=== PATIENT | male | born 1960 | race African-American/Black ===

== ENCOUNTER 2021-01-13 16:33 | Inpatient (IN) | payer OTHER ==
[~2021-01-13] VITALS: Ht 172.7 cm; Wt 100.7 kg
[2021-01-13] MEDS ORDERED: LACTATED RINGERS 1,000 ML IV SCH ×2 (17:00)
[2021-01-13 17:28] LABS: BASOPHILS % 0.6 % (0.0-2.0); EOSINOPHILS % 0.3 % (0.0-5.0); HEMATOCRIT. 21.3 % (42.0-52.0); LYMPHOCYTES % 17.6 % (20.0-50.0); MEAN CORPUSCULAR HEMOGLOBIN 28.7 pg (28.0-32.0); MONOCYTES % 5.9 % (2.0-8.0); NEUTROPHILS % 75.6 % (40.0-76.0); PLATELET 212 x1000/uL (130-400); RED BLOOD CELL COUNT 2.45 mill/uL (4.7-6.1); RED CELL DISTRIBUTION WIDTH 12.5 % (11.6-14.6)
[2021-01-13] MEDS ORDERED: KETOROLAC 15MG/ML VIAL IV ONE (17:30)
[2021-01-13] MEDS ORDERED: ONDANSETRON HCL 4MG/2ML INJ IV ONE (17:30)
[2021-01-13 17:34] LABS: CHLORIDE 105 mEq/L (98-107)
[2021-01-13] MEDS ORDERED: PANTOPRAZOLE SODIUM 40 MG/VIAL IV ONE (18:00)
[2021-01-13] MEDS ORDERED: OCTREOTIDE 1,000 MCG in SODIUM CHLORIDE 0.9% 100 ML IV ONE (18:00)
[2021-01-13] MEDS ORDERED: OCTREOTIDE 1,000 MCG in SODIUM CHLORIDE 0.9% 100 ML IV NR (18:30)
[2021-01-13] MEDS ORDERED: LORAZEPAM 2MG/ML CPJ IV ONE (20:45)
[2021-01-13] MEDS ORDERED: IOHEXOL-300 100 ML BOTTLE ONE (23:17)
[2021-01-14] VITALS (10 sets, daily range): BP systolic 93–152; BP diastolic 43–74
[2021-01-14] MEDS ORDERED: IPRATROPIUM/ALBUTEROL 0.5-3(2.5)MG/3ML NEB HHN PRN (03:15)
[2021-01-14] MEDS: MORPHINE SULFATE 2 MG/ML CPJ (NOT FOR IM USE) IV PRN ×2 (03:54→09:54)
[2021-01-14] MEDS ORDERED: PANTOPRAZOLE 80 MG in SODIUM CHLORIDE 0.9% 100 ML IV SCH (05:00)
[2021-01-14] MEDS: SODIUM CHL 0.9% + KCL 20MEQ/L 1,000 ML IV SCH ×2 (09:51→12:08)
[2021-01-14 10:01] LABS: HEMATOCRIT 24.3 % (42.0-52.0); MEAN CORPUSCULAR HEMOGLOBIN 28.5 pg (28.0-32.0); MEAN CORPUSCULAR VOLUME 86.4 fL (80.0-94.0); PLATELET 202 x1000/uL (130-400); RED BLOOD CELL COUNT 2.81 mill/uL (4.7-6.1); RED CELL DISTRIBUTION WIDTH 13.1 % (11.6-14.6)
[2021-01-14 10:18] LABS: CHLORIDE 105 mEq/L (98-107)
[2021-01-14] MEDS: PANTOPRAZOLE SODIUM 40 MG/VIAL IV SCH (21:00)
[2021-01-14] MEDS ORDERED: MORPHINE SULFATE 2 MG/ML CPJ (NOT FOR IM USE) IV NR (21:45)
[2021-01-14] MEDS ORDERED: ONDANSETRON HCL 4MG/2ML INJ IV PRN (22:30)
[2021-01-15] VITALS (10 sets, daily range): BP systolic 92–132; BP diastolic 41–66
[2021-01-15 01:00] LABS: HEMATOCRIT 26.5 % (42.0-52.0); HEMOGLOBIN 8.8 g/dL (14.0-18.0)
[2021-01-15 01:07] LABS: INR 1.6; PROTHROMBIN TIME 16.5 sec (9.6-11.0)
[2021-01-15] MEDS: DEXT 5%/0.45% NACL KCL 20MEQ/L 1,000 ML IV SCH ×3 (02:33→14:03)
[2021-01-15 05:20] LABS: *AMPHETAMINES SCREEN URINE NEGATIVE (NEGATIVE); *BARBITURATES SCREEN URINE NEGATIVE (NEGATIVE); *BENZODIAZEPINES SCREEN URINE NEGATIVE (NEGATIVE); *COCAINE SCREEN URINE NEGATIVE (NEGATIVE); CANNABINOID URINE SCREEN NEGATIVE (NEGATIVE); METHADONE URINE SCREEN NEGATIVE (NEGATIVE); OPIATES URINE SCREEN PRESUMTIVE POSITIVE (NEGATIVE); PHENCYCLIDINE URINE SCREEN PRESUMTIVE POSITIVE (NEGATIVE)
[2021-01-15 06:24] LABS: PROTHROMBIN TIME 10.8 sec (9.6-11.0)
[2021-01-15 06:27] LABS: BASOPHILS % 0.6 % (0.0-2.0); EOSINOPHILS % 1.3 % (0.0-5.0); HEMATOCRIT. 24.4 % (42.0-52.0); HEMOGLOBIN. 8.2 g/dL (14.0-18.0); LYMPHOCYTES % 29.1 % (20.0-50.0); MEAN CORPUSCULAR HEMOGLOBIN 29.5 pg (28.0-32.0); MEAN CORPUSCULAR VOLUME 87.5 fL (80.0-94.0); MEAN PLATELET VOLUME 7.7 fl (7.4-10.4); MONOCYTES % 6.3 % (2.0-8.0); NEUTROPHILS % 62.7 % (40.0-76.0); PLATELET 187 x1000/uL (130-400); RED BLOOD CELL COUNT 2.79 mill/uL (4.7-6.1); RED CELL DISTRIBUTION WIDTH 13.5 % (11.6-14.6)
[2021-01-15 06:28] LABS: CHLORIDE 103 mEq/L (98-107)
[2021-01-15 06:42] LABS: PHOSPHORUS 2.3 mg/dL (2.5-4.9); TOTAL IRON BINDING CAPACITY 377 ug/dL (250-450)
[2021-01-15 06:43] LABS: FERRITIN 26 ng/mL (22-322)
[2021-01-15 06:45] LABS: FOLIC ACID (FOLATE) SERUM >20 ng/mL ng/mL (>5.38)
[2021-01-15] MEDS: METOCLOPRAMIDE HCL 10MG/2ML VIAL IV SCH ×3 (06:45→11:09)
[2021-01-15 06:57] LABS: VITAMIN B12 SERUM 286 pg/mL (211-911)
[2021-01-15] MEDS: PANTOPRAZOLE SODIUM 40 MG/VIAL IV SCH (08:19)
[2021-01-15] MEDS ORDERED: KETAMINE HCL 50 MG/ML 10ML ONE (10:00)
[2021-01-15] MEDS ORDERED: LIDOCAINE HCL/PF 1% 10 MG/ML 5ML VIAL ONE (10:34)
[2021-01-15] MEDS ORDERED: PROPOFOL 200MG/20ML VIAL IV ONE (10:35)
[2021-01-15] MEDS ORDERED: MIDAZOLAM HCL 2 MG/2 ML VIAL ONE (10:35)
[2021-01-15] MEDS ORDERED: CYANOCOBALAMIN 1000MCG/ML VIAL IM SCH (12:00)
[2021-01-15] MEDS ORDERED: ONDANSETRON HCL 4MG/2ML INJ IV PRN (12:15)
[2021-01-15] MEDS ORDERED: SUCRALFATE 1G TABLET PO SCH (12:20)
[2021-01-15] MEDS ORDERED: IRON SUCROSE COMPLEX 100 MG/5 ML ML IV SCH (13:00)
[2021-01-15] MEDS ORDERED: OMEP40CA12 MT (13:14)
[2021-01-15] MEDS ORDERED: FERR325T23 MT (13:14)
[2021-01-15] MEDS ORDERED: SUCR1TAB30 PO (13:14)
[2021-01-15] MEDS ORDERED: DOCU250C14 MT (13:14)
[2021-01-15] MEDS ORDERED: POTASSIUM CHLORIDE 20MEQ TABLET SR PO NR (13:15)
[2021-01-15] MEDS ORDERED: DEXT 5%/0.45% NACL KCL 20MEQ/L 1,000 ML IV SCH (14:00)
== END 2021-01-15 16:06 | disposition home or self-care (01) | DRG 241 ==
LOC: ER 16:33 → 6WST 20:21 → ENRESERV 01-14 00:36
PROVIDERS: ADMIT Internal Medicine; ATTEND Internal Medicine
PROC: 30233N1 Transfusion of Nonautologous Red Blood Cells into Peripheral Vein, Percutaneous Approach (ICD-10-PCS; 2021-01-13)
PROC: 0DB68ZX Excision of Stomach, Via Natural or Artificial Opening Endoscopic, Diagnostic (ICD-10-PCS; principal; 2021-01-15)
PROC: 30233K1 Transfusion of Nonautologous Frozen Plasma into Peripheral Vein, Percutaneous Approach (ICD-10-PCS; 2021-01-15)
DX: K29.71 Gastritis, unspecified, with bleeding (principal); N17.0 Acute kidney failure with tubular necrosis; R57.8 Other shock; E43 Unspecified severe protein-calorie malnutrition; K25.4 Chronic or unspecified gastric ulcer with hemorrhage; K76.0 Fatty (change of) liver, not elsewhere classified; E87.6 Hypokalemia; F10.10 Alcohol abuse, uncomplicated; D64.9 Anemia, unspecified; F17.210 Nicotine dependence, cigarettes, uncomplicated; I10 Essential (primary) hypertension; J45.909 Unspecified asthma, uncomplicated; K29.81 Duodenitis with bleeding; Z20.822 Contact with and (suspected) exposure to COVID-19; F17.200 Nicotine dependence, unspecified, uncomplicated; Z71.6 Tobacco abuse counseling; Z71.41 Alcohol abuse counseling and surveillance of alcoholic; Z68.33 Body mass index [BMI] 33.0-33.9, adult
CPT/HCPCS: 36415; 71045; 74177; 76700; 80048; 80053; 80076; 80305; 82607; 82728; 82746; 83540; 83550; 83605; 83735; 83880; 84100; 84484; 85014; 85018; 85025; 85027; 85044; 86850; 86900; 86920; 86927; 87426; 88305; 88312; 88313; 93005; 99291; C9113; J1885; J2060; J2250; J2270; J2354; J2405; J2704; J2765; J3420; J3480; J3490; J7040; J7050; P9016; P9017; Q9967